=== PATIENT | female | born 1990 | race Caucasian/White ===

== ENCOUNTER 2017-05-30 10:21 | Emergency (ER) | payer OTHER ==
[~2017-05-30] VITALS: Ht 157.5 cm; Wt 54.0 kg
[~2017-05-30 10:21] MED LIST: DICL-195 PO; HYDR-4309 PO; HYDR-6045 RC; ONDA4TAB PO
--- NOTE | 2017-05-30 10:31 | ER Report ---
History and Physical Time Seen By MD: 10:30 HPI/ROS This is a 26-year-old female status post tubal ligation who presents with intermittent sharp right sided pelvic pain worsening for the past month. Her last menstrual period was April 07, and she states that she normally gets her menses on time. She has noted that she has a tender. No vaginal bleeding, no fever or chills. She appears comfortable in the bed. She does have a history of endometriosis. Previous ectopic . Remainder of the 14 system rev: Yes Allergies: Coded Allergies: No Known Drug Allergies (Unverified , 05/21/15) Home Meds Reported Medications Multivitamin (MULTIVITAMINS) 1 Each Capsule, 1 EACH PO, CAPSULE 05/30/17 Discontinued Scripts Ondansetron (ZOFRAN ODT) 4 Mg Tab.rapdis, 4 MG PO Q6H Y for NAUSEA/VOMITING, # 20 TAB Prov:FANG COTA 05/21/15 Hydrocodone Bit/Acetaminophen (NORCO 5-325 TABLET) 1 Each Tablet, 1 EACH PO Q4- 6H Y for PAIN, #12 TAB Prov:FANG COTAP 05/21/15 Reviewed Nurses Notes: Yes Old Medical Records Reviewed: Yes Hx Smoking: Yes Smoking Status: Current: Every Day Smoker Exposure to Second Hand Smoke?: Yes Constitutional Vital Sign - Last 24 Hours 05/30/17 05/30/17 05/30/17 05/30/17 10:21 10:28 10:29 10:36 Temp 98.7 Pulse ??? 107 100 Resp 18 B/P (MAP) 127/77 127/77 (94) Pulse Ox 91 94 O2 Delivery Room Air 05/30/17 05/30/17 05/30/17 05/30/17 10:51 11:00 11:06 11:21 Pulse 92 91 ??? B/P (MAP) 109/71 (84) Pulse Ox 91 97 95 05/30/17 05/30/17 05/30/17 05/30/17 11:24 11:29 11:30 11:44 Pulse 83 89 B/P (MAP) 102/74 (83) 104/70 (81) Pulse Ox 97 96 05/30/17 05/30/17 05/30/17 05/30/17 11:59 12:00 12:14 12:29 Pulse 88 95 87 B/P (MAP) 104/66 (79) Pulse Ox 97 100 96 05/30/17 05/30/17 05/30/17 05/30/17 12:30 12:44 12:59 13:00 Pulse ? B/P (MAP) 88/51 (63) ???/??? (1665) Physical Exam General Appearance: The patient is alert, has no immediate need for airway protection and no current signs of toxicity. Eyes: Pupils equal and round no injection. Respiratory: Chest is non tender, lungs are clear to auscultation. Cardiac: regular rate and rhythm Gastrointestinal: Abdomen is soft and non tender, no masses, bowel sounds normal. : no vaginal bleeding, no discharge, right adnexal TTP Extremities have full range of motion and are non tender. Skin: No rashes or lesions. DIFFERENTIAL DIAGNOSIS: After history and physical exam differential diagnosis was considered for ectopic, ovarian torsion, STD, TOA, appendicitis, UTI Medical Decision Making Data Points Result Diagram: 05/30/17 1049 05/30/17 1049 Laboratory Hematology Test 05/30/17 10:26 05/30/17 10:49 Urine Color Straw Urine Clarity Clear Urine pH 5.0 pH (4.8-9.5) Urine Specific Viola 1.011 Urine Protein Negative mg/dL (NEGATIVE) Urine Glucose (UA) Negative mg/dL (NEGATIVE) Urine Ketones Negative mg/dL (NEGATIVE) Urine Blood Negative (NEGATIVE) Urine Nitrite Negative (NEGATIVE) Urine Bilirubin Negative (NEGATIVE) Urine Urobilinogen Negative mg/dL (0.2-1.9) Urine Leukocyte Esterase Negative (NEGATIVE) Urine RBC None /HPF (0-2/HPF) Urine WBC 1 /HPF (0-5/HPF) Urine Squamous Epithelial Cells Many /LPF (</=FEW) Urine Bacteria Negative /HPF (NONE-FEW) Urine Mucus None /HPF (NONE-FEW) Red Blood Count 4.80 M/uL (4.17-5.56) Mean Corpuscular Volume 93.3 fL (80.0-96.0) Mean Corpuscular Hemoglobin 31.8 pg (26.0-33.0) Mean Corpuscular Hemoglobin Concent 34.1 g/dL (32.0-36.0) Red Cell Distribution Width 12.5 % (11.5-14.5) Mean Platelet Volume 7.7 fL (7.2-11.1) Neutrophils (%) (Auto) 67.5 % (39.4-72.5) Lymphocytes (%) (Auto) 27.1 % (17.6-49.6) Monocytes (%) (Auto) 4.3 % (4.1-12.4) Eosinophils (%) (Auto) 0.6 % (0.4-6.7) Basophils (%) (Auto) 0.5 % (0.3-1.4) Nucleated RBC Relative Count (auto) 0.0 /100WBC Neutrophils # (Auto) 6.0 K/uL (2.0-7.4) Lymphocytes # (Auto) 2.4 K/uL (1.3-3.6) Monocytes # (Auto) 0.4 K/uL (0.3-1.0) Eosinophils # (Auto) 0.1 K/uL (0.0-0.5) Basophils # (Auto) 0.0 K/uL (0.0-0.1) Nucleated RBC Absolute Count (auto) 0.00 K/uL Sodium Level 140 mmol/L (137-145) Potassium Level 3.4 mmol/L (3.5-5.0) Chloride Level 105 mmol/L (98-107) Carbon Dioxide Level 24 mmol/L (22-31) Blood Urea Nitrogen 11 mg/dl (7-18) Creatinine 0.60 mg/dl (0.52-1.04) Glomerular Filtration Rate Calc > 60.0 Random Glucose 101 mg/dl (75-110) Calcium Level 9.1 mg/dl (8.4-10.2) Total Bilirubin 0.9 mg/dl (0.2-1.3) Aspartate Amino Transf (AST/SGOT) 24 U/L (0-35) Alanine Aminotransferase (ALT/SGPT) 49 U/L (0-56) Alkaline Phosphatase 57 U/L (0-126) Total Protein 7.6 gm/dl (6.3-8.2) Albumin 4.4 g/dl (3.5-5.0) Human Chorionic Gonadotropin, Quant < 2 mIU/ml Chemistry Test 05/30/17 10:26 05/30/17 10:49 Urine Color Straw Urine Clarity Clear Urine pH 5.0 pH (4.8-9.5) Urine Specific Viola 1.011 Urine Protein Negative mg/dL (NEGATIVE) Urine Glucose (UA) Negative mg/dL (NEGATIVE) Urine Ketones Negative mg/dL (NEGATIVE) Urine Blood Negative (NEGATIVE) Urine Nitrite Negative (NEGATIVE) Urine Bilirubin Negative (NEGATIVE) Urine Urobilinogen Negative mg/dL (0.2-1.9) Urine Leukocyte Esterase Negative (NEGATIVE) Urine RBC None /HPF (0-2/HPF) Urine WBC 1 /HPF (0-5/HPF) Urine Squamous Epithelial Cells Many /LPF (</=FEW) Urine Bacteria Negative /HPF (NONE-FEW) Urine Mucus None /HPF (NONE-FEW) White Blood Count 8.9 k/uL (4.5-11.0) Red Blood Count 4.80 M/uL (4.17-5.56) Hemoglobin 15.3 g/dL (12.0-16.0) Hematocrit 44.8 % (34.0-47.0) Mean Corpuscular Volume 93.3 fL (80.0-96.0) Mean Corpuscular Hemoglobin 31.8 pg (26.0-33.0) Mean Corpuscular Hemoglobin Concent 34.1 g/dL (32.0-36.0) Red Cell Distribution Width 12.5 % (11.5-14.5) Platelet Count 259 K/uL (150-450) Mean Platelet Volume 7.7 fL (7.2-11.1) Neutrophils (%) (Auto) 67.5 % (39.4-72.5) Lymphocytes (%) (Auto) 27.1 % (17.6-49.6) Monocytes (%) (Auto) 4.3 % (4.1-12.4) Eosinophils (%) (Auto) 0.6 % (0.4-6.7) Basophils (%) (Auto) 0.5 % (0.3-1.4) Nucleated RBC Relative Count (auto) 0.0 /100WBC Neutrophils # (Auto) 6.0 K/uL (2.0-7.4) Lymphocytes # (Auto) 2.4 K/uL (1.3-3.6) Monocytes # (Auto) 0.4 K/uL (0.3-1.0) Eosinophils # (Auto) 0.1 K/uL (0.0-0.5) Basophils # (Auto) 0.0 K/uL (0.0-0.1) Nucleated RBC Absolute Count (auto) 0.00 K/uL Glomerular Filtration Rate Calc > 60.0 Calcium Level 9.1 mg/dl (8.4-10.2) Total Bilirubin 0.9 mg/dl (0.2-1.3) Aspartate Amino Transf (AST/SGOT) 24 U/L (0-35) Alanine Aminotransferase (ALT/SGPT) 49 U/L (0-56) Alkaline Phosphatase 57 U/L (0-126) Total Protein 7.6 gm/dl (6.3-8.2) Albumin 4.4 g/dl (3.5-5.0) Human Chorionic Gonadotropin, Quant < 2 mIU/ml Urinalysis Test 05/30/17 10:26 Urine Color Straw Urine Clarity Clear Urine pH 5.0 pH (4.8-9.5) Urine Specific Viola 1.011 Urine Protein Negative mg/dL (NEGATIVE) Urine Glucose (UA) Negative mg/dL (NEGATIVE) Urine Ketones Negative mg/dL (NEGATIVE) Urine Blood Negative (NEGATIVE) Urine Nitrite Negative (NEGATIVE) Urine Bilirubin Negative (NEGATIVE) Urine Urobilinogen Negative mg/dL (0.2-1.9) Urine Leukocyte Esterase Negative (NEGATIVE) Urine RBC None /HPF (0-2/HPF) Urine WBC 1 /HPF (0-5/HPF) Urine Squamous Epithelial Cells Many /LPF (</=FEW) Urine Bacteria Negative /HPF (NONE-FEW) Urine Mucus None /HPF (NONE-FEW) ED Course/Re-evaluation ED Course A quantitative HCG was negative for . Transvaginal ultrasound was obtained to evaluate for ovarian torsion given the history of 1 month of intermittent right sided pelvic pain. The ultrasound revealed a small corpus luteal cyst in the right ovary, and otherwise showed normal flow to both ovaries with no other acute findings. On repeat abdominal exam she has no focal tenderness to palpation at McBurney's point or in the right lower quadrant. No evidence of an STD. I counseled her that this could be pain from the corpus luteal cyst, and that she was about to get her menses. Also could be from endometriosis. I will give her ibuprofen 600 mg as well as Zofran prescriptions , and she can follow up with her primary care physician if the symptoms continue. Decision to Disposition Date: May 30, 2017 Decision to Disposition Time: 14:34 Depart Departure Latest Vital Signs Vital Signs Date Time Temp Pulse Resp B/P (MAP) Pulse Ox O2 Delivery O2 Flow Rate FiO2 05/30/17 13:00 ???/??? (1665) 05/30/17 12:59 ??? 05/30/17 12:29 96 05/30/17 10:28 98.7 18 Room Air Impression: Primary Impression: Pelvic pain Condition: Improved Disposition: HOME OR SELF-CARE New Scripts Ondansetron (ZOFRAN ODT) 4 Mg Tab.rapdis 4 MG PO Q6H Y for NAUSEA/VOMITING for 10 Days, #20 TAB.NAHOMY 0 Refills Prov: LINDA PICKETT MD 05/30/17 Ibuprofen (IBUPROFEN) 600 Mg Tablet 1 TAB PO Q6H for 5 Days, #30 TAB Prov: LINDA PICKETT MD 05/30/17 Patient Instructions: Pelvic Pain (ED) LINDA PICKETT MD May 30, 2017 10:31
[2017-05-30] MEDS ORDERED: MULT1CAP59 PO (10:36)
[2017-05-30 10:57] LABS: PLATELET COUNT, AUTOMATED 259 K/uL (150-450)
[2017-05-30] MEDS ORDERED: NS(*) 0.9% 1000 ML BAG 1,000 ML IV ONE (11:35)
[2017-05-30] MEDS ORDERED: ONDANSETRON 4 MG/2 ML VIAL IVP ONE (11:35)
--- NOTE | 2017-05-30 13:01 | RADIOLOGY IMAGING REPORT ---
FACILITY: [facility] PATIENT NAME: Ellie Leon : 1990 MR: [id number] V: [id number] EXAM DATE: ORDERING PHYSICIAN: LINDA PICKETT TECHNOLOGIST: Location: [facility] Patient: Ellie Leon : 1990 Visit/Account:[id number] Date of Sevice: 05/30/2017 INDICATION: evaluate for torsion. DATE: 05/30/2017 12:44 PM. TECHNIQUE: TRANSVAGINAL NON-OB COMPARISON: May 28, 2014 FINDINGS: The uterus measures 7.9 x 4.0 x 4.5 cm. It is anteverted. There is no endometrial fluid. Endometrial stripe measures 7 mm. The supervisor hand workers denotes possible adenomyosis, but this would be better characte rized by MRI. There does appear to be a hyperechoic area deep to the endometrium. There is at least o ne small nabothian cyst. No fluid is noted in the cul-de-sac. The right ovary measures 2.4 x 1.9 x 2 x 5 cm with normal flow on Doppler imaging. A roughly 2 cm rin glike structure within the right ovary measures hyperemic and could potentially be a corpus luteal cy st. The left ovary measures 2.4 x 1.7 x 2.0 cm, also with normal flow on color imaging. IMPRESSION: 1. Normal ovarian Doppler flow without evidence of torsion. 2. There may be a corpus luteal cyst at the right ovary. 3. Hyperechoic area deep to the endometrium is not well characterized by ultrasound but could potenti ally reflect adenomyosis. MRI would better define this area if clinically warranted. Report Dictated By: Prabhu Ramon MD at 05/30/2017 12:44 PM Report E-Signed By: Prabhu Ramon MD at 05/30/2017 12:57 PM WSN:[id number]
[2017-05-30] MEDS ORDERED: KETOROLAC 30 MG/ML VIAL IVP ONE (13:15)
[2017-05-30] MEDS ORDERED: IBUP600T22 PO (14:38)
[2017-05-30] MEDS ORDERED: ONDA4TAB PO (14:38)
== END 2017-05-30 14:53 | disposition home or self-care (01) ==
LOC: ER 10:22
DX: N83.11 Corpus luteum cyst of right ovary (principal)
CPT/HCPCS: 76830; 81001; 84702; 85025; 99284; J1885; J2405; J7030; 82040; 82247; 82310; 82374; 82435; 82565; 82947; 84075; 84132; 84155; 84295; 84450; 84460; 84520

== ENCOUNTER → 2018-06-16 | Outpatient (CLI) | payer MEDICAID ==
[~2018-06-16] MED LIST changes: -HYDR-4309 PO; +HYDR-653 PO; +IBUP600T22 PO; +MULT1CAP59 PO
--- NOTE | 2018-06-16 16:12 | RADIOLOGY IMAGING REPORT ---
FACILITY: [facility] - [place] PATIENT NAME: Ellie Leon : 1990 MR: [id number] V: [id number] EXAM DATE: ORDERING PHYSICIAN: BAILEY JACOBS TECHNOLOGIST: Location: [facility] [place] Patient: Ellie Leon : 1990 Visit/Account:[id number] Date of Sevice: 06/16/2018 Exam type: CHEST PA LAT History: Cough x1 month, history of strep and sinus infection Comparison: None. Findings: The lungs are free of acute effusions, infiltrates or edema. The cardiac silhouette is normal in siz e. There is a very gentle S-shaped scoliosis of the thoracolumbar spine. IMPRESSION: 1. No acute cardiopulmonary process is seen Report Dictated By: Cherie Cesar MD at 06/16/2018 4:06 PM Report E-Signed By: Cherie Cesar MD at 06/16/2018 4:07 PM WSN:[id number]
== END ==
LOC: RAD 15:45
PROVIDERS: ATTEND Nurse Practitioner Family
DX: R05 Cough (principal)
CPT/HCPCS: 71046

== ENCOUNTER 2018-06-25 19:03 | Emergency (ER) | payer MEDICAID ==
[2018-06-25] MEDS ORDERED: TRAZ100T31 PO (19:16)
[2018-06-25] MEDS ORDERED: OXCA600T39 PO (19:16)
--- NOTE | 2018-06-25 19:19 | ER Report ---
History and Physical Time Seen By MD: 19:19 Hx. of Stated Complaint: PT FELL IN BATHROOM AROUND 4PM. COMPLAINT OF HEAD, NECK, AND THORACIC BACK PAIN. PT HAS THROWN UP 6 TIMES SINCE AND HER SAID SHE WAS NOT MAKING SENSE SHORTLY AFTER. HPI/ROS CHIEF COMPLAINT: Headache, upper back pain, neck pain. HISTORY OF PRESENT ILLNESS: 27-year-old female patient presents to the emergency room with complaint of headache, upper back pain, neck pain. 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 She was up on the counter in the bathroom cleaning the mere when she lost her pills backwards. Patient states she doesn't recall hitting the ground but has had back pain, neck and upper back pain since. She believes that she was unconscious for a short period of time. Patient states she's been nauseated but denies having any vomiting. She did state this occurred approximate 2:00 this afternoon. She did cooker tender prior to coming in. She states that she is even nauseated when she was standing up. REVIEW OF SYSTEMS: Respiratory: No cough, no dyspnea. Cardiovascular: No chest pain, no palpitations. Gastrointestinal: No vomiting, no abdominal pain. Musculoskeletal: As noted above Allergies: Coded Allergies: No Known Drug Allergies (Unverified , 06/25/18) Home Meds Active Scripts Ketorolac Tromethamine (KETOROLAC TROMETHAMINE) 10 Mg Tab, 10 MG PO Q6H, #17 TAB Prov:FANG COTA 06/25/18 Reported Medications Oxcarbazepine (OXCARBAZEPINE) 600 Mg Tablet, 600 MG PO QHS 06/25/18 Trazodone Hcl (TRAZODONE HCL) 100 Mg Tablet, 100 MG PO QHS, TAB 06/25/18 Discontinued Reported Medications Multivitamin (MULTIVITAMINS) 1 Each Capsule, 1 EACH PO, CAPSULE 05/30/17 Discontinued Scripts Ondansetron (ZOFRAN ODT) 4 Mg Tab.rapdis, 4 MG PO Q6H PRN for NAUSEA/VOMITING for 10 Days, #20 TAB.NAHOMY 0 Refills Prov:LINDA PICKETT MD 05/30/17 Ibuprofen (IBUPROFEN) 600 Mg Tablet, 1 TAB PO Q6H for 5 Days, #30 TAB Prov:LINDA PICKETT MD 05/30/17 Past Medical/Surgical History Patient has a past medical history of endometriosis, HPV, ovarian cysts, depression. Patient has a surgical history of the reversal of tubal ligation, tubal ligation. Patient has a family medical history of CAD, diabetes. Reviewed Nurses Notes: Yes Hx Smoking: Yes Smoking Status: Current: Every Day Smoker Exposure to Second Hand Smoke?: Yes Hx Alcohol Use: No Constitutional Vital Sign - Last 24 Hours 06/25/18 06/25/18 06/25/18 06/25/18 19:09 19:09 19:18 19:30 Temp 99.4 Pulse 109 104 Resp 14 B/P (MAP) 113/78 (90) 113/78 117/83 (94) Pulse Ox 96 93 O2 Delivery Room Air 06/25/18 06/25/18 06/25/18 06/25/18 19:33 19:48 20:00 20:03 Pulse 103 96 86 B/P (MAP) 104/71 (82) Pulse Ox 96 93 93 06/25/18 06/25/18 06/25/18 06/25/18 20:08 20:30 20:38 20:53 Pulse 92 90 B/P (MAP) 105/65 (78) Pulse Ox 92 93 94 06/25/18 06/25/18 06/25/18 06/25/18 21:00 21:08 21:23 21:30 Pulse 100 88 B/P (MAP) 104/68 (80) 101/66 (78) Pulse Ox 93 93 06/25/18 21:53 Pulse Ox 83 Physical Exam General Appearance: The patient is alert, has no immediate need for airway protection and no current signs of toxicity. Respiratory: Chest is non tender, lungs are clear to auscultation. Cardiac: regular rate and rhythm Gastrointestinal: Abdomen is soft and non tender, no masses, bowel sounds normal. Musculoskeletal: Neck: Neck is tender. Back: Patient does have tenderness to the thoracic spine. No tenderness to the lumbar spine. Extremities have full range of motion and are non tender. Skin: No rashes or lesions. No bruising noted. DIFFERENTIAL DIAGNOSIS: After history and physical exam differential diagnosis was considered for concussion, fracture, sprain. Medical Decision Making Data Points Laboratory Hematology Test 06/25/18 19:42 Urine HCG, Qualitative Negative (NEGATIVE) Chemistry Test 06/25/18 19:42 Urine HCG, Qualitative Negative (NEGATIVE) Urinalysis Test 06/25/18 19:42 Urine HCG, Qualitative Negative (NEGATIVE) EKG/Imaging Imaging CT Head without contrast and CT Cervical spine: Indication: Fall. Comparison: None available Technique: CT head: Axial CT images were obtained through the brain from the skull base to the vertex without administration of IV contrast. Reformatted coronal and sagittal images were also obtained. Technique: CT cervical spine: Axial CT imaging of the cervical spine was performed. 2-D sagittal and coronal CT reformats were also obtained. One of the following dose optimization techniques was utilized in the performance of this exam: Automated exposure control; adjustment of the mA and/or kV according to the patient's size; or use of an iterative reconstruction technique. Specific details can be referenced in the facility's radiology CT exam operational policy. FINDINGS: CT head: No intracranial bleed, midline shift, mass effect, extra-axial fluid collection or hydrocephalus. No abnormal density. Olivia/white matter differentiation appears normal. Bony structures show no fractures or lesions. Sinuses and mastoids visualized are clear. CT cervical spine: The vertebral bodies are aligned. No fracture or facet dislocation. No bony lesions or degenerative changes. Endplates are maintained. No obvious disc herniation. Prevertebral soft tissues and surrounding soft tissues are unremarkable. Lung apices are clear. IMPRESSION: 1. No acute intracranial abnormality. No skull fracture. 2. No acute osseous or acute alignment abnormality of the cervical spine. Report Dictated By: Luis Enrique Rodriguez at 06/25/2018 8:45 PM Report E-Signed By: Luis Enrique Rodriguze at 06/25/2018 8:[address] thoracic and lumbar spine Indication: Fall. Comparison: None available. Technique: Axial CT imaging of the thoracic and lumbar spine was performed. 2-D sagittal and coronal CT reformats were also obtained. One of the following dose optimization techniques was utilized in the performance of this exam: Automated exposure control; adjustment of the mA and/or kV according to the patient's size; or use of an iterative reconstruction technique. Specific details can be referenced in the facility's radiology CT exam operational policy. Findings: Thoracic: Vertebral body height and alignment are normal. No fracture. Multilevel small Schmorl's nodes. The spinal canal and neural foramina are grossly patent Lumbar: Vertebral body height and alignment are normal. No fracture. Minimal multilevel degenerative disease with posterior disc bulges that mildly narrow spinal canal. Neural foramina appear grossly. Multiple small Schmorl's nodes. Soft tissues are unremarkable. Impression: 1. No acute osseous abnormality of the thoracic spine. 2. 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 Report Dictated By: Nile Mahmood MD at 06/25/2018 9:04 PM Report E-Signed By: Nile Mahmood MD at 06/25/2018 9:[address] thoracic and lumbar spine Indication: Fall. Comparison: None available. Technique: Axial CT imaging of the thoracic and lumbar spine was performed. 2-D sagittal and coronal CT reformats were also obtained. One of the following dose optimization techniques was utilized in the performance of this exam: Automated exposure control; adjustment of the mA and/or kV according to the patient's size; or use of an iterative reconstruction technique. Specific details can be referenced in the facility's radiology CT exam operational policy. Findings: Thoracic: Vertebral body height and alignment are normal. No fracture. Multilevel small Schmorl's nodes. The spinal canal and neural foramina are grossly patent Lumbar: Vertebral body height and alignment are normal. No fracture. Minimal multilevel degenerative disease with posterior disc bulges that mildly narrow spinal canal. Neural foramina appear grossly. Multiple small Schmorl's nodes. Soft tissues are unremarkable. Impression: 1. No acute osseous abnormality of the thoracic spine. 2. 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 Report Dictated By: Nile Mahmood MD at 06/25/2018 9:04 PM Report E-Signed By: Nile Mahmood MD at 06/25/2018 9:13 PM ED Course/Re-evaluation ED Course Patient was admitted to an exam room, history and physical were obtained. Differential diagnoses were considered. On examination lungs are clear, heart is regular, abdomen soft nontender. Patient does have tenderness to the thoracic spine. She also is complaining of a headache. HCG was to [employer]ner has been trending . That was negative. A CT scan of the head, cervical spine, thoracic spine, lumbar spine were done. Imaging results were negative. Patient was complaining of persistent headache. She is given a dose of Toradol. Patient had significant improvement. Patient states she is feeling better and ready to go home. Patient had her collar removed and had no neck pain after that. We will go ahead and discharge patient home at this time. We'll give her a prescription of Toradol. Patient does have a concussion. She should follow-up with primary care provider next week. Patient verbalized understanding and agreement with plan. Decision to Disposition Date: Jun 25, 2018 Decision to Disposition Time: 21:39 Depart Departure Latest Vital Signs Vital Signs Date Time Temp Pulse Resp B/P (MAP) Pulse Ox O2 Delivery O2 Flow Rate FiO2 06/25/18 21:53 83 06/25/18 21:30 101/66 (78) 06/25/18 21:23 88 06/25/18 19:09 99.4 14 Room Air Impression: Primary Impression: Concussion Condition: Improved Disposition: HOME OR SELF-CARE New Scripts Ketorolac Tromethamine (KETOROLAC TROMETHAMINE) 10 Mg Tab 10 MG PO Q6H, #17 TAB Prov: FANG COTA 06/25/18 Patient Instructions: Concussion (ED) Additional Instructions: Get plenty of rest. Limit activity by pain. Limit TV and computer time. Monitor for confusion, increased irritability, uncontrollable vomiting, worsening headache or difficulty to arouse. Return to the ER if those are to occur. Follow up with your primary care provider in the next week. Problem Qualifiers Primary Impression: Concussion Encounter type: initial encounter Loss of consciousness presence/duration: with LOC of 30 min or less Qualified Codes: S06.0X1A - Concussion with loss of consciousness of 30 minutes or less, initial encounter FANG COTA Jun 25, 2018 19:19
--- NOTE | 2018-06-25 20:57 | RADIOLOGY IMAGING REPORT ---
FACILITY: [facility] - [place] PATIENT NAME: Ellie Leon : 1990 MR: [id number] V: [id number] EXAM DATE: ORDERING PHYSICIAN: FANG COTA TECHNOLOGIST: [place] [facility] [place]: Ellie Leon : 1990 Visit/Account:[id number] Date of Sevice: 06/25/2018 CT Head without contrast and CT Cervical spine: Indication: Fall. Comparison: None available Technique: CT head: Axial CT images were obtained through the brain from the skull base to the verte x without administration of IV contrast. Reformatted coronal and sagittal images were also obtained. Technique: CT cervical spine: Axial CT imaging of the cervical spine was performed. 2-D sagittal and coronal CT reformats were also obtained. One of the following dose optimization techniques was utilized in the performance of this exam: Autom ated exposure control; adjustment of the mA and/or kV according to the patient's size; or use of an i terative reconstruction technique. Specific details can be referenced in the facility's radiology C T exam operational policy. FINDINGS: CT head: No intracranial bleed, midline shift, mass effect, extra-axial fluid collection or hydrocephalus. No abnormal density. Olivia/white matter differentiation appears normal. Bony structures show no fractures or lesions. Sinuses and mastoids visualized are clear. CT cervical spine: The vertebral bodies are aligned. No fracture or facet dislocation. No bony lesions or degenerative c hanges. Endplates are maintained. No obvious disc herniation. Prevertebral soft tissues and surroundi ng soft tissues are unremarkable. Lung apices are clear. IMPRESSION: 1. No acute intracranial abnormality. No skull fracture. 2. No acute osseous or acute alignment abnormality of the cervical spine. Report Dictated By: Luis Enrique Rodriguez at 06/25/2018 8:45 PM Report E-Signed By: Luis Enrique Rodriguez at 06/25/2018 8:54 PM WSN:[id number]
--- NOTE | 2018-06-25 20:58 | RADIOLOGY IMAGING REPORT ---
FACILITY: [facility] PATIENT NAME: Ellie Leon : 1990 MR: [id number] V: [id number] EXAM DATE: ORDERING PHYSICIAN: FANG COTA TECHNOLOGIST: Location: [facility] [place] Patient: Ellie Leon : 1990 Visit/Account:[id number] Date of Sevice: 06/25/2018 CT Head without contrast and CT Cervical spine: Indication: Fall. Comparison: None available Technique: CT head: Axial CT images were obtained through the brain from the skull base to the verte x without administration of IV contrast. Reformatted coronal and sagittal images were also obtained. Technique: CT cervical spine: Axial CT imaging of the cervical spine was performed. 2-D sagittal and coronal CT reformats were also obtained. One of the following dose optimization techniques was utilized in the performance of this exam: Autom ated exposure control; adjustment of the mA and/or kV according to the patient's size; or use of an i terative reconstruction technique. Specific details can be referenced in the facility's radiology C T exam operational policy. FINDINGS: CT head: No intracranial bleed, midline shift, mass effect, extra-axial fluid collection or hydrocephalus. No abnormal density. Olivia/white matter differentiation appears normal. Bony structures show no fractures or lesions. Sinuses and mastoids visualized are clear. CT cervical spine: The vertebral bodies are aligned. No fracture or facet dislocation. No bony lesions or degenerative c hanges. Endplates are maintained. No obvious disc herniation. Prevertebral soft tissues and surroundi ng soft tissues are unremarkable. Lung apices are clear. IMPRESSION: 1. No acute intracranial abnormality. No skull fracture. 2. No acute osseous or acute alignment abnormality of the cervical spine. Report Dictated By: Luis Enrique Rodriguez at 06/25/2018 8:45 PM Report E-Signed By: Luis Enrique Rodriguez at 06/25/2018 8:54 PM WSN:[id number]
[2018-06-25] MEDS ORDERED: KETOROLAC TROM 10MG TAB PO ONE (21:10)
--- NOTE | 2018-06-25 21:17 | RADIOLOGY IMAGING REPORT ---
FACILITY: [facility] [place] PATIENT NAME: Ellie Leon : 1990 MR: [id number] V: [id number] EXAM DATE: ORDERING PHYSICIAN: FANG COTA TECHNOLOGIST: [place] [facility] [place] : 1990 Visit/Account:[id number] Date of Sevice: 06/25/2018 CT thoracic and lumbar spine Indication: Fall. Comparison: None available. Technique: Axial CT imaging of the thoracic and lumbar spine was performed. 2-D sagittal and coronal CT reformats were also obtained. One of the following dose optimization techniques was utilized in the performance of this exam: Automated exposure control; adjustment of the mA and/or kV according to the patient's size; or use of an iterative reconstruction technique. Specific details can be refer enced in the facility's radiology CT exam operational policy. Findings: Thoracic: Vertebral body height and alignment are normal. No fracture. Multilevel small Schmorl's nodes. The spinal canal and neural foramina are grossly patent Lumbar: Vertebral body height and alignment are normal. No fracture. Minimal multilevel degenerativ e disease with posterior disc bulges that mildly narrow spinal canal. Neural foramina appear grossly . Multiple small Schmorl's nodes. Soft tissues are unremarkable. Impression: 1. No acute osseous abnormality of the thoracic spine. 2. 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 Report Dictated By: Nile Mahmood MD at 06/25/2018 9:04 PM Report E-Signed By: Nile Mahmood MD at 06/25/2018 9:13 PM WSN:[id number]
--- NOTE | 2018-06-25 21:17 | RADIOLOGY IMAGING REPORT ---
FACILITY: [facility] [place] PATIENT NAME: Ellie Leon : 1990 MR: [id number] V: [id number] EXAM DATE: ORDERING PHYSICIAN: FANG COTA TECHNOLOGIST: Location: [facility] [place] Patient: Ellie Leon : 1990 Visit/Account:[id number] Date of Sevice: 06/25/2018 CT thoracic and lumbar spine Indication: Fall. Comparison: None available. Technique: Axial CT imaging of the thoracic and lumbar spine was performed. 2-D sagittal and coronal CT reformats were also obtained. One of the following dose optimization techniques was utilized in the performance of this exam: Automated exposure control; adjustment of the mA and/or kV according to the patient's size; or use of an iterative reconstruction technique. Specific details can be refer enced in the facility's radiology CT exam operational policy. Findings: Thoracic: Vertebral body height and alignment are normal. No fracture. Multilevel small Schmorl's nodes. The spinal canal and neural foramina are grossly patent Lumbar: Vertebral body height and alignment are normal. No fracture. Minimal multilevel degenerativ e disease with posterior disc bulges that mildly narrow spinal canal. Neural foramina appear grossly . Multiple small Schmorl's nodes. Soft tissues are unremarkable. Impression: 1. No acute osseous abnormality of the thoracic spine. 2. 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 Report Dictated By: Nile Mahmood MD at 06/25/2018 9:04 PM Report E-Signed By: Nile Mahmood MD at 06/25/2018 9:13 PM WSN:[id number]
[2018-06-25 21:30] VITALS: BP 101/66
[2018-06-25] MEDS ORDERED: KETOROLAC TROM 10 MG TAB TH PO ONE (21:35)
[2018-06-25] MEDS ORDERED: KET10 PO (21:39)
== END 2018-06-25 22:04 | disposition home or self-care (01) ==
LOC: ER 19:23
DX: S06.0X1A Concussion with loss of consciousness of 30 minutes or less, initial encounter (principal)
CPT/HCPCS: 70450; 72125; 72128; 72131; 81025; 99284; L0172

== ENCOUNTER → 2018-07-09 | Outpatient (CLI) | payer MEDICAID ==
[~2018-07-09] MED LIST changes: +IOPAMIDOL-200 50 ML VIAL IS ONE; +KET10 PO; +OXCA600T39 PO; +TRAZ100T31 PO
--- NOTE | 2018-07-09 10:53 | OPERATIVE REPORT 1 ---
EVENT DATE: July 09, 2018 SURGEON: Ja Petersen MD PRE-PROCEDURE DIAGNOSIS 1. Fertility testing. 2. Post tubal reversal procedure. PROCEDURE PERFORMED Hysterosalpingogram under fluoroscopy. FINDINGS Normal appearing uterine cavity architecture without filling defects throughout the cavity. The left fallopian tube appeared to fill and spill contrast dye into the pelvis. The right tube filled to mid portion of the tube and did not appear to spill. DESCRIPTION OF PROCEDURE The patient was brought to the fluoroscopy room at the radiology department at [facility] and consent was obtained. She was placed on the fluoroscopy table in dorsal lithotomy position. Single-arm speculum was placed in the vagina and the cervix was brought into view. It was cleansed with Betadine x3 and a single-tooth tenaculum was applied to the anterior lip of the cervix. The HSG catheter was passed through the cervix and the bulb was inflated with 1.5 cc of air. Isovue-200 was used for the radiocontrast dye. The patient was repositioned for the fluoroscopy and under direct fluoroscopy Isovue-200 was injected into the uterus and observed the uterus filling in the entire cavity without any apparent fluid filling defects. The left fallopian tube appeared to fill and spill contrast into the pelvis while the right tube filled midway through the tube and did not appear to spill. Still images were taken for the radiologist. The catheter was used to suction out any remaining Isovue-200 in the uterus. Catheter and tenaculum were removed. The patient experienced moderate cramping during the procedure but was resolved upon completion. She was given precautions and sent home in stable condition. LUIS
--- NOTE | 2018-07-09 16:15 | RADIOLOGY IMAGING REPORT ---
FACILITY: [facility] PATIENT NAME: Ellie Leon : 1990 MR: [id number] V: [id number] EXAM DATE: ORDERING PHYSICIAN: LETICIA PETERSEN TECHNOLOGIST: Location: [facility] Patient: Ellie Leon : 1990 Visit/Account:[id number] Date of Sevice: 07/09/2018 Exam type: XR HYSTEROSALPINGOGRAM History: Evaluate for tubal patency Comparison: None. Findings: The hysterosalpingogram was performed by Dr. Petersen. Five coned-down spot images of the pelvis wer e submitted demonstrating a balloon catheter within the endometrial cavity. Contrast outlines the en dometrial cavity and fills both nondilated fallopian tubes. There is initial spillage of contrast in the distal portion of the left fallopian tube. On the final images there was a small amount contras t seen just lateral to the right fallopian tube. The fluoroscopy dose area product was 86.16 micro-G ray per meter squared. Please see Dr. Petersen's note for complete details IMPRESSION: 1. There appears to be patency of both fallopian tubes Report Dictated By: Cherie Cesar MD at 07/09/2018 4:08 PM Report E-Signed By: Cherie Cesar MD at 07/09/2018 4:11 PM WSN:[email or web address]
== END ==
LOC: RAD 00:21
PROVIDERS: ATTEND Obstetrics & Gynecology
DX: Z31.41 Encounter for fertility testing (principal)
CPT/HCPCS: 58340; 74740; 81025; Q9966

== ENCOUNTER 2018-09-04 10:54 | Emergency (ER) | payer MEDICAID ==
[~2018-09-04 10:54] MED LIST changes: -IOPAMIDOL-200 50 ML VIAL IS ONE
[2018-09-04 11:42] LABS: PLATELET COUNT, AUTOMATED 278 K/uL (150-450)
--- NOTE | 2018-09-04 11:59 | ER Report ---
History and Physical Time Seen By MD: 11:05 Hx. of Stated Complaint: PT WAS AT [facility], STATES SHE WAS HAVING THERAPY ON HER LEFT ARM. STARTED HAVING SHARP CHEST PAIN. HPI/ROS CHIEF COMPLAINT: Chest pain HISTORY OF PRESENT ILLNESS: 27-year-old female was at physical therapy this morning, where she is undergoing treatment for months long paresthesias. She was in the midst of treatment, lying down, not exerting herself, when she developed sudden sharp chest pain that radiated throughout the anterior chest. Pain did not radiate to the back. Pain lasted less than 5 minutes. This reoccurred twice. It occurred when she arrived here but has not recurred since. Patient has never had similar symptoms. Pain was sharp and moderately severe. She had no shortness of breath, no nausea, vomiting, fever, abdominal pain. She has had no swelling in her legs. She has no recent travel. No family history of DVT or PE. It is unknown if there is cardiac history at a young age. REVIEW OF SYSTEMS: Constitutional: No fever, no chills. Eyes: no blurred vision ENT: No sore throat. Cardiovascular: above Respiratory: No cough, no shortness of breath. Gastrointestinal: No abdominal pain, no vomiting. Genitourinary: no dysuria Musculoskeletal: No back pain. Skin: No rashes. Neurological: No headache. Remainder of the 14 system rev: Yes Allergies: Coded Allergies: No Known Drug Allergies (Unverified , 06/25/18) Home Meds Active Scripts Ketorolac Tromethamine (KETOROLAC TROMETHAMINE) 10 Mg Tab, 10 MG PO Q6H, #17 TAB Prov:BEATAFANG EXERCISE SCIENTIST 06/25/18 Reported Medications Oxcarbazepine (OXCARBAZEPINE) 600 Mg Tablet, 600 MG PO QHS 06/25/18 Trazodone Hcl (TRAZODONE HCL) 100 Mg Tablet, 100 MG PO QHS, TAB 06/25/18 Hx Smoking: Yes Smoking Status: Current: Every Day Smoker Exposure to Second Hand Smoke?: Yes Hx Alcohol Use: No Constitutional Vital Sign - Last 24 Hours 09/04/18 10:58 Temp 98.7 Pulse 94 Resp 16 B/P (MAP) 141/96 Pulse Ox 96 O2 Delivery Room Air Physical Exam General Appearance: The patient is alert, has no immediate need for airway protection and no signs of toxicity. Eyes: Pupils equal and round no pallor or injection. ENT, Mouth: Mucous membranes are moist. Respiratory: There are no retractions, lungs are clear to auscultation. Cardiovascular: Regular rate and rhythm. no m/r/g Gastrointestinal: Abdomen is soft and non tender, no masses, bowel sounds normal. Neurological: alert, oriented, moves all ext Skin: Warm and dry, no rashes. Musculoskeletal: Extremities are nontender, nonswollen and have full range of motion. DIFFERENTIAL DIAGNOSIS: After history and physical exam differential diagnosis was considered for chest pain including but not limited to myocardial ischemia, pericarditis pulmonary embolus, chest wall pain, pleural inflammation and pulmonary infectious causes. Medical Decision Making Data Points Result Diagram: 09/04/18 1106 09/04/18 1106 Laboratory Hematology Test 09/04/18 11:06 Red Blood Count 4.69 M/uL (4.17-5.56) Mean Corpuscular Volume 95.6 fL (80.0-96.0) Mean Corpuscular Hemoglobin 32.1 pg (26.0-33.0) Mean Corpuscular Hemoglobin Concent 33.6 g/dL (32.0-36.0) Red Cell Distribution Width 12.5 % (11.5-14.5) Mean Platelet Volume 8.0 fL (7.2-11.1) Neutrophils (%) (Auto) 58.4 % (39.4-72.5) Lymphocytes (%) (Auto) 35.9 % (17.6-49.6) Monocytes (%) (Auto) 4.4 % (4.1-12.4) Eosinophils (%) (Auto) 0.8 % (0.4-6.7) Basophils (%) (Auto) 0.5 % (0.3-1.4) Nucleated RBC Relative Count (auto) 0.1 /100WBC Neutrophils # (Auto) 3.4 K/uL (2.0-7.4) Lymphocytes # (Auto) 2.1 K/uL (1.3-3.6) Monocytes # (Auto) 0.3 K/uL (0.3-1.0) Eosinophils # (Auto) 0.0 K/uL (0.0-0.5) Basophils # (Auto) 0.0 K/uL (0.0-0.1) Nucleated RBC Absolute Count (auto) 0.00 K/uL D-Dimer Quantitative (PE/DVT) < 0.27 ug/ml (0-0.50) Sodium Level 142 mmol/L (137-145) Potassium Level 3.6 mmol/L (3.5-5.0) Chloride Level 107 mmol/L (98-107) Carbon Dioxide Level 26 mmol/L (22-31) Blood Urea Nitrogen 11 mg/dl (7-18) Creatinine 0.70 mg/dl (0.52-1.04) Glomerular Filtration Rate Calc > 60.0 Random Glucose 97 mg/dl (75-110) Calcium Level 9.1 mg/dl (8.4-10.2) Total Bilirubin 0.2 mg/dl (0.2-1.3) Aspartate Amino Transf (AST/SGOT) 22 U/L (0-35) Alanine Aminotransferase (ALT/SGPT) 21 U/L (0-56) Alkaline Phosphatase 57 U/L (0-126) Troponin I < 0.012 ng/ml Total Protein 7.0 g/dl (6.3-8.2) Albumin 4.2 g/dl (3.5-5.0) Lipase 88 U/L (23-300) Chemistry Test 09/04/18 11:06 White Blood Count 5.8 k/uL (4.5-11.0) Red Blood Count 4.69 M/uL (4.17-5.56) Hemoglobin 15.1 g/dL (12.0-16.0) Hematocrit 44.8 % (34.0-47.0) Mean Corpuscular Volume 95.6 fL (80.0-96.0) Mean Corpuscular Hemoglobin 32.1 pg (26.0-33.0) Mean Corpuscular Hemoglobin Concent 33.6 g/dL (32.0-36.0) Red Cell Distribution Width 12.5 % (11.5-14.5) Platelet Count 278 K/uL (150-450) Mean Platelet Volume 8.0 fL (7.2-11.1) Neutrophils (%) (Auto) 58.4 % (39.4-72.5) Lymphocytes (%) (Auto) 35.9 % (17.6-49.6) Monocytes (%) (Auto) 4.4 % (4.1-12.4) Eosinophils (%) (Auto) 0.8 % (0.4-6.7) Basophils (%) (Auto) 0.5 % (0.3-1.4) Nucleated RBC Relative Count (auto) 0.1 /100WBC Neutrophils # (Auto) 3.4 K/uL (2.0-7.4) Lymphocytes # (Auto) 2.1 K/uL (1.3-3.6) Monocytes # (Auto) 0.3 K/uL (0.3-1.0) Eosinophils # (Auto) 0.0 K/uL (0.0-0.5) Basophils # (Auto) 0.0 K/uL (0.0-0.1) Nucleated RBC Absolute Count (auto) 0.00 K/uL D-Dimer Quantitative (PE/DVT) < 0.27 ug/ml (0-0.50) Glomerular Filtration Rate Calc > 60.0 Calcium Level 9.1 mg/dl (8.4-10.2) Total Bilirubin 0.2 mg/dl (0.2-1.3) Aspartate Amino Transf (AST/SGOT) 22 U/L (0-35) Alanine Aminotransferase (ALT/SGPT) 21 U/L (0-56) Alkaline Phosphatase 57 U/L (0-126) Troponin I < 0.012 ng/ml Total Protein 7.0 g/dl (6.3-8.2) Albumin 4.2 g/dl (3.5-5.0) Lipase 88 U/L (23-300) Coagulation Test 09/04/18 11:06 D-Dimer Quantitative (PE/DVT) < 0.27 ug/ml EKG/Imaging EKG Interpretation 12 lead EKG: Rhythm: Normal sinus rhythm Mckenna: Normal QRS: Normal ST segments: Normal Monitor Interpretation: Normal Sinus Rhythm ED Course/Re-evaluation ED Course Pt presents with fleeting, atypical chest pain without other symptoms. This did not recur in the emergency department and was not associated with exertion. Her heart score is less than 4. Low likelihood for ACS, PE. Chest x-ray is unremarkable for other findings. Patient is asymptomatic and comfortable for discharge. At this point we will discharge with strict return precautions. Patient is comfortable with the plan. Decision to Disposition Date: Sep 04, 2018 Decision to Disposition Time: 12:05 Depart Departure Latest Vital Signs Vital Signs Date Time Temp Pulse Resp B/P (MAP) Pulse Ox O2 Delivery O2 Flow Rate FiO2 09/04/18 10:58 98.7 94 16 141/96 96 Room Air Impression: Primary Impression: Chest pain Condition: Improved Disposition: HOME OR SELF-CARE Patient Instructions: Chest Pain (ED) Additional Instructions: as we discussed, please return for worsening pain, pain with exerting yourself, shortness of breath, or any concerns. You will schedule follow up with your primary doctor within the next week. Problem Qualifiers Primary Impression: Chest pain Chest pain type: unspecified Qualified Codes: R07.9 - Chest pain, unspecified KYLER PICKETT MD Sep 04, 2018 11:59
[2018-09-04 12:11] VITALS: BP 111/74
--- NOTE | 2018-09-04 12:21 | RADIOLOGY IMAGING REPORT ---
FACILITY: [facility] PATIENT NAME: Ellie Leon : 1990 MR: [id number] V: [id number] EXAM DATE: [id number] ORDERING PHYSICIAN: KYLER PICKETT TECHNOLOGIST: Location: [facility] [place] Patient: Ellie Leon : 1990 Visit/Account:[id number] Date of Sevice: 09/04/2018 Exam type: CHEST PA LAT History: chest pain Comparison: June 16, 2018. Findings: There is mild scarring in the left lung base. The lungs are free of acute effusions, infiltrates or edema. There is no evidence of a pneumothorax or pneumomediastinum. Cardiac silhouette is normal in size. There is a very gentle S-shaped scoliosis of the thoracic spine. IMPRESSION: 1. Mild scarring in the left lung base otherwise no evidence of pulmonary consolidation Report Dictated By: Cherie Cesar MD at 09/04/2018 12:16 PM Report E-Signed By: Cherie Cesar MD at 09/04/2018 12:17 PM WSN:[email or web address]
--- NOTE | 2018-09-04 15:13 | EKG ---
FACILITY: [facility] PATIENT NAME: SONNY GILES : [id number] MR: [id number] V: [id number] EXAM DATE: ORDERING PHYSICIAN: KYLER PICKETT TECHNOLOGIST: LOUIS Bryant Reason : CARDIAC Blood Pressure : / mmHG Vent. Rate : 086 BPM Atrial Rate : 086 BPM P-R Int : 112 ms QRS Dur : 076 ms QT Int : 388 ms P-R-T Axes : 079 097 073 degrees QTc Int : 464 ms Normal sinus rhythm with sinus arrhythmia Normal ECG No previous ECGs available Confirmed by KRISHNA REARDON ([id number]) on 09/04/2018 9:12:20 PM Referred By: Confirmed By:KRISHNA REARDON
== END 2018-09-04 12:17 | disposition home or self-care (01) ==
LOC: ER 11:06
DX: R07.9 Chest pain, unspecified (principal)
CPT/HCPCS: 71046; 82040; 82247; 82310; 82374; 82435; 82565; 82947; 83690; 84075; 84132; 84155; 84295; 84450; 84460; 84484; 84520; 85025; 85379; 93005; 99284

== ENCOUNTER 2018-10-21 00:23 | Day surgery (SDC) | payer MEDICAID ==
[~2018-10-21] VITALS: Ht 157.5 cm; Wt 50.3 kg
[~2018-10-21 00:23] MED LIST changes: +VALA100059 PO
[2018-10-21] MEDS ORDERED: SCOPOLAMINE 1.5 MG PATCH TD ONE (06:21)
[2018-10-21] MEDS ORDERED: LIDOCAINE/SOD BICARB 8.4% SYR ID ONE (06:30)
[2018-10-21] MEDS ORDERED: MIDAZOLAM 2 MG/2 ML VIAL IVP PRN (06:30)
[2018-10-21] MEDS ORDERED: FAMOTIDINE 20 MG TAB PO ONE (06:30)
[2018-10-21] MEDS ORDERED: NORMOSOL R SOLN(*) 1000 ML BAG 1,000 ML IV PRN (06:30)
[2018-10-21] MEDS ORDERED: ISOSULFAN BLUE 1% SLN 50MG/5ML ONE (06:36)
[2018-10-21] MEDS ORDERED: ROPIVACAINE 0.2% 20 ML VIAL ONE (06:36)
[2018-10-21 06:46] LABS: PLATELET COUNT, AUTOMATED 197 K/uL (150-450)
[2018-10-21 06:50] VITALS: BP 102/67
[2018-10-21] MEDS ORDERED: fentaNYL CITR 100 MCG/2 ML AMP ONE ×3 (07:13→08:59)
[2018-10-21] MEDS ORDERED: LIDOCAINE MPF 1% 5 ML VIAL ONE (07:16)
[2018-10-21] MEDS ORDERED: PROPOFOL EMUL(*) 10MG/ML 20 ML 20 ML ONE (07:16)
[2018-10-21] MEDS ORDERED: DEXAMETHASONE SOD 4 MG/ML VIAL ONE (07:34)
[2018-10-21] MEDS ORDERED: KETOROLAC 30 MG/ML VIAL ONE (07:35)
[2018-10-21] MEDS ORDERED: ONDANSETRON 4 MG/2 ML VIAL ONE (07:35)
[2018-10-21] MEDS ORDERED: SUGAMMADEX SOD 200 MG/2 ML SDV ONE (08:20)
[2018-10-21] MEDS ORDERED: LR(*) 1000 ML BAG 1,000 ML IV ONE (08:36)
[2018-10-21] MEDS ORDERED: APAP/HYDROCODONE 325/5 TAB PO PRN (08:40)
--- NOTE | 2018-10-21 08:50 | Post Operative Note ---
Operative Note - [facility] Operative Day Date: Oct 21, 2018 Time: 08:42 Physicians Surgeon: Nicola Anesthesia: Gen LMA Diagnosis Pre-Op Diagnosis: Dysmenorrhea Pelvic pain Post-Op Diagnosis: same Procedure Findings: adhesions to prior tube repair Procedure(s): Diagnostic laparoscopy Lysis of adhesions Chromopertubation of oviducts Specimen Removed:(Maybe N/A): #[id number] Complications: none Fluids Fluids: 1000 ml Estimated Blood Loss: minimal Dictated Date OP Note Dictated: Oct 21, 2018 Time OP Note Dictated: 08:44 Copies to: LETICIA OBRIEN MD ; LETICIA OBRIEN MD Oct 21, 2018 08:50
--- NOTE | 2018-10-21 09:14 | OPERATIVE REPORT 1 ---
EVENT DATE: October 21, 2018 SURGEON: Ja Petersen MD ANESTHESIOLOGIST: Ramon Shaw MD ANESTHESIA: General, LMA PREOPERATIVE DIAGNOSIS 1. Pelvic pain. 2. Secondary dysmenorrhea. POSTOPERATIVE DIAGNOSIS 1. Pelvic pain. 2. Secondary dysmenorrhea. PROCEDURE PERFORMED 1. Diagnostic laparoscopy. 2. Lysis of adhesions. 3. Chromopertubation of oviducts. ESTIMATED BLOOD LOSS Minimal. FLUIDS 1 liter IV Crystalloid. FINDINGS Upon inspecting the abdomen and pelvis the uterus was noted to be somewhat boggy in appearance with some surface irregularities, but no definite masses or lesions otherwise. It did appear to be consistent with adenomyosis. Both tubes had been previously repaired from her prior tubal ligation and tubal reversal as there was omental adhesions to both sides and to the ovary. Inspection of the entire posterior cul-de-sac, posterior ovarian fossa, anterior cul-de-sac did not reveal any obvious endometriosis. Normal appearing bowel and abdominal contents otherwise. On chromopertubation of the oviducts, the left fallopian tube demonstrating fill and spill of fluid, while the right tube filled to the distal portion and there was an obvious stricture of scarring in that location. The right tube did not spill demonstrating tubal occlusion. DESCRIPTION OF PROCEDURE The patient was brought to the operating room and a working IV was already in place. She placed in the dorsal supine position, placed under general LMA anesthesia and then moved to the dorsal lithotomy position. She was prepped and draped in the usual sterile fashion. A weighted-speculum was placed in the vagina, the cervix was grasped on the anterior lip with a single-toothed tenaculum and it was carefully sounded to a depth of 7 cm. The cervix was dilated to a size 4 Hegar dilator and a 6 cm small diameter Zuelima uterine manipulator was selected, assembled, passed through the cervix into the uterus, bulb inflated and secured and all instruments were then removed. The bladder was drained and the legs were brought back to the supine position. Gloves were changed and we proceeded laparoscopically by infiltrating the umbilicus with 0.2% Naropin. A 5 mm stab incision was made with the scalpel. The anterior abdominal wall was elevated while a Veress needle was passed through this incision into the abdomen and negative pressure was confirmed by elevating the anterior abdominal wall, confirming intraabdominal presence. The pneumoperitoneum was then created to a intraabdominal pressure of 20 mmHg. The Veress needle was then removed and a 5 mm bladeless trocar was passed through this incision into the abdomen under direct visualization with the scope. The abdomen and pelvis were surveyed with the above findings noted. A second 5 mm port was placed in the suprapubic location under a similar technique. After inspecting the entire pelvis and not finding any visible endometriosis, the LigaSure device was used to take down the omental adhesions from both adnexa. Care was taken to identify the ureters on both sides and to avoid any energy source in those areas. Care was also taken to stay distant from the tubes so as not to create a thermal injury to the tube. Once both tubes and ovaries had been freed in their entirety, chromopertubation was performed observing fill of blue dye through the left tube and spill into the pelvis and a fill of blue dye through the right tube to the distal portion where there was a significant stricture near the fimbriated end of the tube and no visible spillage was observed. Therefore, the entire pelvis was copiously irrigated and suctioned dry. Pneumoperitoneum was suctioned out. All instruments were removed from the abdomen. Skin incisions were repaired with 4-0 Monocryl simple subdermal and covered with Dermabond skin adhesive. The Zuleima uterine manipulator was removed. She tolerated the procedure well. Sponge, lap, needle and instrument counts were correct x3. She was taken to recovery in stable condition. LUIS
[2018-10-21 09:40] VITALS: BP 98/75
[2018-10-21] MEDS ORDERED: IBUP800T37 PO (10:16)
[2018-10-21] MEDS ORDERED: LOR5/325 PO (10:16)
[2018-10-21] MEDS ORDERED: IBUPROFEN 800 MG TAB PO SCH (14:00)
== END 2018-10-21 09:40 | disposition home or self-care (01) ==
LOC: OR 00:23
PROVIDERS: ATTEND Obstetrics & Gynecology
DX: R10.2 Pelvic and perineal pain (principal); N94.5 Secondary dysmenorrhea
CPT/HCPCS: 58350; 84703; 85025; J1100; J1885; J2001; J2250; J2405; J2704; J2795; J3010; J7030; Q9968

== ENCOUNTER → 2018-12-17 | Outpatient (CLI) | payer MEDICAID ==
[~2018-12-17] MED LIST changes: +IBUP800T37 PO; +LOR5/325 PO
== END ==
LOC: LAB 09:23
PROVIDERS: ATTEND Nurse Practitioner Pediatrics
DX: F31.62 Bipolar disorder, current episode mixed, moderate (principal)
CPT/HCPCS: 36415; 84702

== ENCOUNTER 2018-12-25 11:42 | Emergency (ER) | payer MEDICAID ==
[~2018-12-25 11:42] MED LIST changes: -ARI2 PO; -QUET25TA30 PO
[2018-12-25] MEDS ORDERED: QUET25TA30 PO (11:52)
[2018-12-25] MEDS ORDERED: ARI2 PO (11:52)
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
[2018-12-25] MEDS ORDERED: NS(*) 0.9% 1000 ML BAG 1,000 ML IV ONE (12:15)
[2018-12-25] MEDS ORDERED: ONDANSETRON 4 MG/2 ML VIAL IVP ONE (12:15)
[2018-12-25 12:48] LABS: PLATELET COUNT, AUTOMATED 250 K/uL (150-450)
--- NOTE | 2018-12-25 14:24 | RADIOLOGY IMAGING REPORT ---
FACILITY: [facility] PATIENT NAME: Ellie Leon : 1990 MR: [id number] V: [id number] EXAM DATE: ORDERING PHYSICIAN: GARDENIA VIEIRA TECHNOLOGIST: Location: [facility] [place] Patient: Ellie Leon : 1990 Visit/Account:[id number] Date of Sevice: 12/25/2018 OB Ultrasound < 14 weeks Additional Pertinent history: Pelvic pain with early . COMPARISON STUDIES: None available FINDINGS: Gestational sac: Not visualized Yolk sac: Not visualized pole: Not visualized Uterus: The uterus shows no focal normality. Nabothian cyst seen in the cervix. The endometrium measu res 7.4 mm and homogeneous without fluid or focal normality. Maternal ovaries: Right ovary measures 1.1 x 3.0 x 1.6 cm and shows normal blood flow without focal a bnormality. Left ovary measures 6.2 x 3.8 x 4.5 cm and shows normal blood flow. There is a complex cy stic and solid appearing mass in the left ovary measuring 4.0 x 4.0 x 3.3 cm. There is no associated blood flow within this mass. The left ovary is otherwise unremarkable. Adnexa: No adnexal mass lesion or focal abnormality. Free pelvic fluid: Moderate amount free fluid. IMPRESSION: 1. No indication of intrauterine or extrauterine . Suggest follow-up clinically and laborato ry values to assess for early or unseen ectopic. Follow-up imaging as indicated. 2. The left ovary does show 4 cm complex mass without blood flow. This could represent a hemorrhagic cyst. There is no indication at this point for ectopic however suggest correlation with bet a hCG and follow-up to assess for ectopic. 3. Moderate amount of fluid seen in pelvis which is anechoic without debris. I called report to GARDENIA VIEIRA at 12/25/2018 2:14 PM. Report Dictated By: Luis Enrique Rodriguez at 12/25/2018 2:09 PM Report E-Signed By: Luis Enrique Rodriguez at 12/25/2018 2:15 PM WSN:[id number]
[2018-12-25] MEDS ORDERED: HYDR-653 PO (14:54)
[2018-12-25 15:13] VITALS: BP 112/67
== END 2018-12-25 15:23 | disposition home or self-care (01) ==
LOC: ER 11:47
DX: R10.2 Pelvic and perineal pain (principal); Z33.1 Pregnant state, incidental; N83.202 Unspecified ovarian cyst, left side
CPT/HCPCS: 76817; 81001; 81025; 84702; 85025; 96361; 96374; 99284; J2405; J7030; 82040; 82247; 82310; 82374; 82435; 82565; 82947; 84075; 84132; 84155; 84295; 84450; 84460; 84520

== ENCOUNTER → 2018-12-25 | Outpatient (CLI) | payer MEDICAID ==
[~2018-12-25] MED LIST changes: +ARI2 PO; +QUET25TA30 PO
== END ==
LOC: LAB 14:32
PROVIDERS: ATTEND Nurse Practitioner Pediatrics
DX: F31.62 Bipolar disorder, current episode mixed, moderate (principal)
CPT/HCPCS: 82040; 82247; 82248; 84075; 84146; 84155; 84443; 84450; 84460

== ENCOUNTER → 2018-12-27 | Outpatient (CLI) | payer MEDICAID ==
[~2018-12-27] MED LIST changes: +ARI2 PO; +QUET25TA30 PO
== END ==
LOC: LAB 08:01
PROVIDERS: ATTEND Nurse Practitioner Family
DX: R10.9 Unspecified abdominal pain (principal)
CPT/HCPCS: 36415; 84702